=== PATIENT | female | born 1995 | race Caucasian/White ===

== ENCOUNTER 2020-08-31 11:11 | Emergency (ER) | payer OTHER ==
[~2020-08-31] VITALS: Ht 162.6 cm; Wt 72.6 kg
[2020-08-31] MEDS ORDERED: ACYCLOVIR800 MG PO (12:27)
== END 2020-08-31 12:32 | disposition home or self-care (01) ==
LOC: ER 11:11
DX: B02.9 Zoster without complications (principal)